=== PATIENT | female | born 1950 | race Caucasian/White ===

== ENCOUNTER 2018-10-06 10:21 | Day surgery (SDC) | payer MEDICARE, OTHER ==
[~2018-10-06 10:21] MED LIST: PROPOFOL INJ 200 MG/20 ML VIAL IV ONE
[2018-10-06 11:46] VITALS: BP 127/65
--- NOTE | 2018-10-06 12:57 | Operative Report ---
Operative Report DATE OF SURGERY: 10/06/18 Operative Report: The risks benefits and alternatives of the procedure explained to the patient in detail and informed consent is obtained.A GIF Olympus video scope was inserted into the patient's mouth and hypopharynx, the esophagus is identified intubated and insufflated ,the scope was then advanced through the esophagus stomach and duodenum, retroflexion maneuver is done,the esophagus stomach and first and second portions of the duodenum examined. PREOPERATIVE DIAGNOSIS: esophageal reflux disease. Chronic cough suggestive of extra esophageal symptoms of GERD POSTOPERATIVE DIAGNOSIS: Esophagitis versus Galan's status post biopsy for confirmation. Gastritis status post biopsy for Helicobacter pylori OPERATION: EGD with biopsy SURGEON: DONAVON HOLLOWAY ANESTHESIA: LMAC TISSUE REMOVED OR ALTERED: As noted above. COMPLICATIONS: None. ESTIMATED BLOOD LOSS: None. INTRAOPERATIVE FINDINGS: As noted above. PROCEDURE: Patient tolerated the procedure well. No immediate postprocedure complications are noted. Patient discharged in good condition. Discharge date 10/06/2018. Discharge diet: Regular. Discharge activity: Regular. 2-3-week follow-up to discuss findings. Patient is instructed to call the office or proceed to the emergency room should there be any further problems or questions. Wait on the pathology.
== END 2018-10-06 11:31 | disposition home or self-care (01) ==
LOC: END 10:21
PROVIDERS: ATTEND Internal Medicine Gastroenterology
PROC: 0DB68ZX Excision of Stomach, Via Natural or Artificial Opening Endoscopic, Diagnostic (ICD-10-PCS; 2018-10-06)
PROC: 0DB58ZX Excision of Esophagus, Via Natural or Artificial Opening Endoscopic, Diagnostic (ICD-10-PCS; principal; 2018-10-06 13:00)
DX: K29.50 Unspecified chronic gastritis without bleeding (principal); K21.9 Gastro-esophageal reflux disease without esophagitis; R05 Cough; Z85.038 Personal history of other malignant neoplasm of large intestine; I25.2 Old myocardial infarction; Z85.820 Personal history of malignant melanoma of skin; Z87.891 Personal history of nicotine dependence; Z79.82 Long term (current) use of aspirin; Z79.899 Other long term (current) drug therapy
CPT/HCPCS: 43239; 731; 88305; 88342; J2704